=== PATIENT | female | born 1960 | race Caucasian/White ===

== ENCOUNTER 2019-09-05 20:25 | Emergency (ER) | payer OTHER ==
[2019-09-05] MEDS ORDERED: DUONEB 0.5-3 MG/3 ml Neb IH ONE ×2 (20:28→20:33)
[2019-09-05] MEDS ORDERED: solu-MEDROL 125 MG IV ONE (20:28)
[2019-09-05] MEDS ORDERED: Sodium Chloride 0.9% 1000 ML 1,000 ML IV SCH (20:30)
[2019-09-05] MEDS ORDERED: Sodium Chloride 0.9% 1000 ML 1,000 ML ONE (20:37)
[2019-09-05] MEDS ORDERED: solu-MEDROL 125 MG ONE (20:37)
[2019-09-05] MEDS ORDERED: HYDROCODONE-ACETAMIN 2.5-108/5 ML SOLUTION ONE (21:10)
[2019-09-05 21:11] LABS: Lactic Acid 2.2 (0.4-2.0)
[2019-09-05] MEDS: HYDROCODONE-ACETAMIN 2.5-108/5 ML SOLUTION PO PRN (21:11)
[2019-09-05 21:21] LABS: Absolute Neutrophil Ct (ANC) 4.13 (1.4-6.9); BASOPHIL % 0.5 % (0.0-0.4); Basophil (Absolute #) 0.04 (0-0.4); Eosinophil % 9.2 % (0.00-5.0); Hematocrit 43.7 % (35-47); Hemoglobin 14.8 gm/dl (12.0-16.0); Lymphocyte (Absolute #) 1.89 (1.0-4.6); Lymphocytes % 24.7 % (24.0-44.0); Mean Cell Volume 98.6 fl (78-100); Mean Corpuscular Hemoglobin 33.4 pg (26-32); Mean Corpuscular Hgb Concent. 33.9 g/dl (32-36); Mean Platelet Volume 11.2 fl (7.5-11.0); Monocyte (Absolute #) 0.89 (0.0-1.3); Monocytes % 11.6 % (0.0-12.0); Platelet Count 234 K/mm3 (150-450); Red Blood Count 4.43 M/mm3 (4.1-5.4); White Blood Count 7.7 K/mm3 (4.0-10.5)
[2019-09-05] MEDS ORDERED: PROVENTIL 2.5 MG/3 ML NEB IH ONE ×2 (21:27→21:30)
[2019-09-05 21:50] LABS: INFLUENZA A NEGATIVE (NEGATIVE); INFLUENZA B NEGATIVE (NEGATIVE); RESPIRATORY SYNCTIAL VIRUS NEGATIVE (Negative)
[2019-09-05 21:53] LABS: ALBUMIN 4.5 g/dL (3.5-5.0); ALKALINE PHOSPHATASE 74 U/L (38-126); ANION GAP 12.9 MEQ/L (5-15); BLOOD UREA NITROGEN 11 mg/dL (7-17); CHLORIDE 104 mmol/L (98-107); Calcium 10.4 mg/dL (8.4-10.2); Carbon Dioxide 25 mmol/L (22-30); Creatinine 1 0.62 mg/dL (0.52-1.04); Glucose 90 mg/dL (74-106); MAGNESIUM 1.8 mg/dL (1.6-2.3); NT PRO BNP 232 pg/mL (0-900); Potassium 3.6 mmol/L (3.5-5.1); SGOT/AST 51 U/L (14-36); SGPT/ALT 19 U/L (0-35); SODIUM 137 mmol/L (137-145); Total Protein 7.7 g/dL (6.3-8.2)
[2019-09-05 22:03] LABS: Appearance CLEAR (CLEAR); Bilirubin NEGATIVE (NEGATIVE); Blood MODERATE Ery/ul (0-5); Epithelial Cells RARE /HPF (FEW); Glucose NEGATIVE (NEGATIVE); Ketones NEGATIVE (NEGATIVE); Leukocyte Esterase NEGATIVE (NEGATIVE); Mucus SLIGHT /HPF (NEGATIVE); Nitrite NEGATIVE (NEGATIVE); Protein,Urine Dip NEGATIVE (Negative); Specific Gravity 1.004 (1.005-1.025); Urobilinogen NEGATIVE mg/dL (0-1)
[2019-09-05 22:23] VITALS: PULSE 82
[2019-09-05 22:34] LABS: INR 0.92 (0.8-3.0); PROTIME 10.4 SECONDS (9.95-12.35)
[2019-09-05 23:18] VITALS: O2SAT 100
--- NOTE | 2019-09-06 00:05 | ERPHSYRPT ---
- History of Present Illness Time Seen by Provider: 09/05/19 20:35 Source: patient Patient Subjective Stated Complaint: pt states fot the last three dys she has been unable to breath well. she states sheh as not been ill to her knowledge but feels like she has had hot and cold flashes. Triage Nursing Assessment: pt states she has had no pain but has trouble getting a good breath. states it is harder to breath when she lays down flat. Physician History: patient is a 59-year-old female has been short of breath and coughing since Wednesday. She denies any fever but has had chills and sweats. She is coughing up clear sputum. She says she's never been told has COPD but she does have a inhaler that she uses frequently. Timing/Duration: day(s) (5) Activities at Onset: none Severity of Dyspnea-Max: moderate Severity of Dyspnea-Current: moderate Possible Cause: occasional episodes Modifying Factors: Improves With: activity, albuterol nebulizer Associated Symptoms: cough, wheezing, heaviness, lightheadedness Allergies/Adverse Reactions: No Known Drug Allergies Allergy (Unverified 09/05/19 20:40) Home Medications: Albuterol Sulfate [Albuterol Sulfate Hfa] 90 mcg IN 09/05/19 [History] clonazePAM [Clonazepam] 0.5 mg PO BID 09/05/19 [History] Hx Influenza Vaccination/Date Given: No Hx Pneumococcal Vaccination/Date Given: No - Review of Systems Constitutional: Chills, Night Sweats, No Fever Eyes: No Symptoms Ears, Nose, & Throat: No Symptoms Respiratory: Cough, Dyspnea, Dyspnea on Exertion (BROWN), Wheezing Cardiac: No Chest Pain, No Edema, No Syncope Abdominal/Gastrointestinal: No Abdominal Pain, No Nausea, No Vomiting, No Diarrhea Genitourinary Symptoms: No Dysuria Musculoskeletal: No Back Pain, No Neck Pain Skin: No Rash Neurological: No Dizziness, No Focal Weakness, No Sensory Changes Psychological: No Symptoms Endocrine: No Symptoms All Other Systems: Reviewed and Negative - Past Medical History Pertinent Past Medical History: No - Past Surgical History Past Surgical History: No - Social History Smoking Status: Current every day smoker How long have you smoked: 40 Drug Use: none Patient Lives Alone: No - Nursing Vital Signs Nursing Vital Signs: Initial Vital Signs Temperature 97.6 F 09/05/19 20:29 Pulse Rate 95 H 09/05/19 20:29 Respiratory Rate 22 09/05/19 20:29 O2 Sat by Pulse Oximetry 96 09/05/19 20:29 Pain Scale Pain Intensity 0 - Physical Exam General Appearance: moderate distress, alert Eye Exam: PERRL/EOMI Ears, Nose, Throat Exam: normal ENT inspection Neck Exam: normal inspection, supple Respiratory Exam: respiratory distress, diminished breath sounds, accessory muscle use, prolonged expirations, crackles/rales, rhonchi, wheezing Cardiovascular/Chest Exam: normal heart sounds, regular rate/rhythm Abdominal/Gastrointestinal Exam: soft, No tenderness, No distention, No mass Extremity Exam: non-tender, normal range of motion, normal inspection, no calf tenderness, no pedal edema Peripheral Pulses Exam: carotid (R): 2+, carotid (L): 2+ Neurologic Exam: alert, oriented x 3, cooperative, chief privacy officer II-XII nml as tested, sensation nml, No motor deficits Skin Exam: normal color, warm, No dry Lymphatic Exam: adenopathy SpO2 Interpretation: normal SpO2: 100 O2 Delivery: Room Air - Radiology Exams Chest X-ray Interpretation: Interpreted by me, No Pneumonia, No Pneumothorax, No Infiltrates - CT Exams Chest CT Interpretation: Other (CT scan shows emphysematous changes and scarring in the left upper O. and lobe which should be followed) Ordered Tests: Active Orders 24 hr Category Date Time Status Supervisor Filter Assembly STAT Care 09/05/19 20:29 Active EKG-ER Only STAT Care 09/05/19 20:28 Active IV Insertion STAT Care 09/05/19 20:28 Active Oxygen-ED Only Nasal Cannula 2 lpm Care 09/05/19 21:04 Active Pulse Oximetry (ED) STAT Care 09/05/19 20:28 Active CHEST 1 VIEW (PORTABLE) Stat Exams 09/05/19 20:29 Taken CHEST WITH CONTRAST [CT] Stat Exams 09/05/19 22:16 Taken BLOOD CULTURE Stat Lab 09/05/19 21:03 Received CBC W DIFF Stat Lab 09/05/19 21:03 Completed CMP Stat Lab 09/05/19 21:03 Completed D-DIMER QUANTITATIVE Stat Lab 09/05/19 21:03 Completed Lactic Acid Stat Lab 09/05/19 20:28 Completed Lactic Acid Stat Lab 09/05/19 23:03 Ordered MAGNESIUM Stat Lab 09/05/19 21:03 Completed NT PRO BNP Stat Lab 09/05/19 21:03 Completed PROTIME WITH INR Stat Lab 09/05/19 21:03 Completed TROPONIN Q3H Lab 09/05/19 20:30 Completed TROPONIN Q3H Lab 09/05/19 23:30 Ordered TROPONIN Q3H Lab 09/06/19 02:30 Ordered TROPONIN Q3H Lab 09/06/19 05:30 Ordered TROPONIN Q3H Lab 09/06/19 08:30 Ordered UA W/RFX UR CULTURE Stat Lab 09/05/19 21:22 Completed Peak Expiratory Flow Rate ONCE RT 09/05/19 20:28 Active Respiratory Therapy Assessment DAILY RT 09/05/19 20:58 Active Medication Summary Generic Name Dose Route Start Last Admin Trade Name Freq PRN Reason Stop Dose Admin Hydrocodone Bitart/Acetaminophen 5 ml 09/05/19 21:08 09/05/19 21:11 Hydrocodone-Acetamin 2.5-108/5 Ml Solution PO 09/10/19 21:07 5 ml STAT PRN Administration COUGH Sodium Chloride 1,000 mls @ 100 mls/hr 09/05/19 20:30 09/05/19 20:39 Sodium Chloride 0.9% 1000 Ml IV 10/05/19 20:29 100 mls/hr .Q10H SOPHIE Administration Discontinued Medications Generic Name Dose Route Start Last Admin Trade Name Freq PRN Reason Stop Dose Admin Albuterol Sulfate 2.5 mg 09/05/19 21:27 09/05/19 21:32 Proventil 2.5 Mg/3 Ml Neb IH 09/05/19 21:28 2.5 mg STAT ONE Administration Albuterol Sulfate Confirm 09/05/19 21:30 Proventil 2.5 Mg/3 Ml Neb Administered 09/05/19 21:31 Dose 2.5 mg IH .STK-MED ONE Albuterol/Ipratropium 3 ml 09/05/19 20:28 09/05/19 20:40 Duoneb 0.5-3 Mg/3 Ml Neb IH 09/05/19 20:29 3 ml STAT ONE Administration Albuterol/Ipratropium Confirm 09/05/19 20:33 Duoneb 0.5-3 Mg/3 Ml Neb Administered 09/05/19 20:34 Dose 3 ml IH .STK-MED ONE Methylprednisolone Sodium Succinate 125 mg 09/05/19 20:28 09/05/19 20:39 Solu-Medrol 125 Mg IV 09/05/19 20:29 125 mg STAT ONE Administration Methylprednisolone Sodium Succinate Confirm 09/05/19 20:37 Solu-Medrol 125 Mg Administered 09/05/19 20:38 Dose 125 mg .ROUTE .STK-MED ONE Lab/Rad Data: Laboratory Result Diagrams 09/05/19 21:03 09/05/19 21:03 Laboratory Results 09/05/19 09/05/19 09/05/19 Range/Units 21:22 21:03 21:03 WBC (4.0-10.5) K/mm3 RBC (4.1-5.4) M/mm3 Hgb (12.0-16.0) gm/dl Hct (35-47) % MCV (78-100) fl MCH (26-32) pg MCHC (32-36) g/dl RDW (11.5-14.0) % Plt Count (150-450) K/mm3 MPV (7.5-11.0) fl Gran % (36.0-66.0) % Eos # (Auto) (0-0.5) Absolute Lymphs (auto) (1.0-4.6) Absolute Monos (auto) (0.0-1.3) Lymphocytes % (24.0-44.0) % Monocytes % (0.0-12.0) % Eosinophils % (0.00-5.0) % Basophils % (0.0-0.4) % Absolute Granulocytes (1.4-6.9) Basophils # (0-0.4) PT 10.4 (9.95-12.35) SECONDS INR 0.92 (0.8-3.0) D-Dimer 499 (215-500) ng/mL Sodium (137-145) mmol/L Potassium (3.5-5.1) mmol/L Chloride (98-107) mmol/L Carbon Dioxide (22-30) mmol/L Anion Gap (5-15) MEQ/L BUN (7-17) mg/dL Creatinine (0.52-1.04) mg/dL Estimated GFR ML/MIN Glucose (74-106) mg/dL Lactic Acid (0.4-2.0) Calcium (8.4-10.2) mg/dL Magnesium (1.6-2.3) mg/dL Total Bilirubin (0.2-1.3) mg/dL AST (14-36) U/L ALT (0-35) U/L Alkaline Phosphatase (38-126) U/L Troponin I (0.000-0.034) ng/mL NT-Pro-B Natriuret Pep (0-900) pg/mL Serum Total Protein (6.3-8.2) g/dL Albumin (3.5-5.0) g/dL Urine Color STRAW (YELLOW) Urine Appearance CLEAR (CLEAR) Urine pH 6.0 (5-6) Ur Specific [place] 1.004 (1.005-1.025) Urine Protein NEGATIVE (Negative) Urine Ketones NEGATIVE (NEGATIVE) Urine Blood MODERATE (0-5) Jimbo/ul Urine Nitrite NEGATIVE (NEGATIVE) Urine Bilirubin NEGATIVE (NEGATIVE) Urine Urobilinogen NEGATIVE (0-1) mg/dL Ur Leukocyte Esterase NEGATIVE (NEGATIVE) Urine WBC (Auto) NONE (0-5) /HPF Urine RBC (Auto) 3-5 (0-2) /HPF U Epithel Cells (Auto) RARE (FEW) /HPF Urine Bacteria (Auto) NONE (NEGATIVE) /HPF Urine Mucus (Auto) SLIGHT (NEGATIVE) /HPF Urine Culture Reflexed NO (NO) Urine Glucose NEGATIVE (NEGATIVE) mg/dL Influenza Type A Ag NEGATIVE (NEGATIVE) Influenza Type B Ag NEGATIVE (NEGATIVE) RSV (PCR) NEGATIVE (Negative) 09/05/19 09/05/19 09/05/19 Range/Units 21:03 21:03 20:30 WBC 7.7 (4.0-10.5) K/mm3 RBC 4.43 (4.1-5.4) M/mm3 Hgb 14.8 (12.0-16.0) gm/dl Hct 43.7 (35-47) % MCV 98.6 (78-100) fl MCH 33.4 H (26-32) pg MCHC 33.9 (32-36) g/dl RDW 13.0 (11.5-14.0) % Plt Count 234 (150-450) K/mm3 MPV 11.2 H (7.5-11.0) fl Gran % 54.0 (36.0-66.0) % Eos # (Auto) 0.70 H (0-0.5) Absolute Lymphs (auto) 1.89 (1.0-4.6) Absolute Monos (auto) 0.89 (0.0-1.3) Lymphocytes % 24.7 (24.0-44.0) % Monocytes % 11.6 (0.0-12.0) % Eosinophils % 9.2 H (0.00-5.0) % Basophils % 0.5 (0.0-0.4) % Absolute Granulocytes 4.13 (1.4-6.9) Basophils # 0.04 (0-0.4) PT (9.95-12.35) SECONDS INR (0.8-3.0) D-Dimer (215-500) ng/mL Sodium 137 (137-145) mmol/L Potassium 3.6 (3.5-5.1) mmol/L Chloride 104 (98-107) mmol/L Carbon Dioxide 25 (22-30) mmol/L Anion Gap 12.9 (5-15) MEQ/L BUN 11 (7-17) mg/dL Creatinine 0.62 (0.52-1.04) mg/dL Estimated GFR > 60.0 ML/MIN Glucose 90 (74-106) mg/dL Lactic Acid (0.4-2.0) Calcium 10.4 H (8.4-10.2) mg/dL Magnesium 1.8 (1.6-2.3) mg/dL Total Bilirubin 0.80 (0.2-1.3) mg/dL AST 51 H (14-36) U/L ALT 19 (0-35) U/L Alkaline Phosphatase 74 (38-126) U/L Troponin I < 0.012 (0.000-0.034) ng/mL NT-Pro-B Natriuret Pep 232 (0-900) pg/mL Serum Total Protein 7.7 (6.3-8.2) g/dL Albumin 4.5 (3.5-5.0) g/dL Urine Color (YELLOW) Urine Appearance (CLEAR) Urine pH (5-6) Ur Specific [place] (1.005-1.025) Urine Protein (Negative) Urine Ketones (NEGATIVE) Urine Blood (0-5) Jimbo/ul Urine Nitrite (NEGATIVE) Urine Bilirubin (NEGATIVE) Urine Urobilinogen (0-1) mg/dL Ur Leukocyte Esterase (NEGATIVE) Urine WBC (Auto) (0-5) /HPF Urine RBC (Auto) (0-2) /HPF U Epithel Cells (Auto) (FEW) /HPF Urine Bacteria (Auto) (NEGATIVE) /HPF Urine Mucus (Auto) (NEGATIVE) /HPF Urine Culture Reflexed (NO) Urine Glucose (NEGATIVE) mg/dL Influenza Type A Ag (NEGATIVE) Influenza Type B Ag (NEGATIVE) RSV (PCR) (Negative) 09/05/19 Range/Units 20:28 WBC (4.0-10.5) K/mm3 RBC (4.1-5.4) M/mm3 Hgb (12.0-16.0) gm/dl Hct (35-47) % MCV (78-100) fl MCH (26-32) pg MCHC (32-36) g/dl RDW (11.5-14.0) % Plt Count (150-450) K/mm3 MPV (7.5-11.0) fl Gran % (36.0-66.0) % Eos # (Auto) (0-0.5) Absolute Lymphs (auto) (1.0-4.6) Absolute Monos (auto) (0.0-1.3) Lymphocytes % (24.0-44.0) % Monocytes % (0.0-12.0) % Eosinophils % (0.00-5.0) % Basophils % (0.0-0.4) % Absolute Granulocytes (1.4-6.9) Basophils # (0-0.4) PT (9.95-12.35) SECONDS INR (0.8-3.0) D-Dimer (215-500) ng/mL Sodium (137-145) mmol/L Potassium (3.5-5.1) mmol/L Chloride (98-107) mmol/L Carbon Dioxide (22-30) mmol/L Anion Gap (5-15) MEQ/L BUN (7-17) mg/dL Creatinine (0.52-1.04) mg/dL Estimated GFR ML/MIN Glucose (74-106) mg/dL Lactic Acid 2.2 H (0.4-2.0) Calcium (8.4-10.2) mg/dL Magnesium (1.6-2.3) mg/dL Total Bilirubin (0.2-1.3) mg/dL AST (14-36) U/L ALT (0-35) U/L Alkaline Phosphatase (38-126) U/L Troponin I (0.000-0.034) ng/mL NT-Pro-B Natriuret Pep (0-900) pg/mL Serum Total Protein (6.3-8.2) g/dL Albumin (3.5-5.0) g/dL Urine Color (YELLOW) Urine Appearance (CLEAR) Urine pH (5-6) Ur Specific [place] (1.005-1.025) Urine Protein (Negative) Urine Ketones (NEGATIVE) Urine Blood (0-5) Jimbo/ul Urine Nitrite (NEGATIVE) Urine Bilirubin (NEGATIVE) Urine Urobilinogen (0-1) mg/dL Ur Leukocyte Esterase (NEGATIVE) Urine WBC (Auto) (0-5) /HPF Urine RBC (Auto) (0-2) /HPF U Epithel Cells (Auto) (FEW) /HPF Urine Bacteria (Auto) (NEGATIVE) /HPF Urine Mucus (Auto) (NEGATIVE) /HPF Urine Culture Reflexed (NO) Urine Glucose (NEGATIVE) mg/dL Influenza Type A Ag (NEGATIVE) Influenza Type B Ag (NEGATIVE) RSV (PCR) (Negative) - Progress Progress: improved Air Movement: good Blood Culture(s) Obtained: Yes Antibiotics given: No - Departure Departure Disposition: Home Clinical Impression: COPD exacerbation Condition: Stable Critical Care Time: No Referrals: MILES ALMAGUER [Primary Care Provider] - Instructions: Chronic Obstructive Pulmonary Disease Plan of Treatment: we did encourage admission however the patient was quite adamant that she was feeling better one to go home. Prescriptions: Cephalexin Mh 500 mg [Keflex 500 mg] 500 mg PO TID #21 capsule Prednisone 10 mg [Deltasone 10 mg] 30 mg PO BID #18 tablet
[2019-09-06] MEDS ORDERED: KEFLEX 500 MG PO ONE (00:08)
[2019-09-06 00:11] VITALS: BP 157/100
[2019-09-06] MEDS ORDERED: HYDROCODONE-ACETAMIN 2.5-108/5 ML SOLUTION ONE (00:12)
[2019-09-06] MEDS ORDERED: KEFLEX 500 MG ONE (00:12)
[2019-09-06] MEDS: HYDROCODONE-ACETAMIN 2.5-108/5 ML SOLUTION PO PRN (00:14)
[2019-09-06 01:10] LABS: Lactic Acid 2.1 (0.4-2.0)
--- NOTE | 2019-09-06 08:57 | XRAY ---
Indication: Cough and short of breath. Comparison: June 28, 2019. Portable chest remains hyperinflated without focal infiltrate, consolidation, or large effusion. Heart is not enlarged. Bony thorax intact again with scoliosis. Impression: Nonacute hyperinflated chest with chronic features.
--- NOTE | 2019-09-06 09:00 | XRAY ---
Indication: Cough, short of breath, chills, and hot flashes. Multiple contiguous axial images obtained through the chest using 80 cc Isovue 370 contrast and PE protocol. Comparison: None There is good opacification of the pulmonary arteries to include the lobar and segmental branches. No filling defect or pulmonary embolus. Heart is not enlarged. Aorta is minimally arteriosclerotic without aneurysm/dissection. Subcarinal and right perihilar calcified nodes. No pathologic mediastinal/hilar lymphadenopathy. Lungs demonstrates moderate pulmonary emphysema and bilateral upper lobe pleural-parenchymal fibrosis/scarring. Posterior left upper lobe demonstrates a 0.8 x 1.5 cm noncalcified spiculated lesion, either focal fibrosis/scarring versus malignancy. Posterior medial right lower lobe demonstrates 4 mm peripheral indeterminate noncalcified nodule. No infiltrate or effusion. Bony thorax demonstrates minimal degenerative changes throughout the spine and mild double curvature scoliosis. Superior endplate of L2 demonstrates remote appearing concave deformity either prominent Schmorl nodes versus old endplate fracture. Limited upper abdomen demonstrates tiny calcified splenic granuloma. Impression: 1. Negative pulmonary embolus. 2. Left upper lobe noncalcified spiculated lesion possibly focal fibrosis/scarring as there is additional foci in both upper lobes. Malignancy not completely excluded. Additional indeterminant right lower lobe noncalcified micronodule. Comparison studies would be of benefit if performed elsewhere. PET/CT may yield further information. 3. Incidental pulmonary emphysema, evidence for old granulomatous disease, and chronic bony findings. Comment: Preliminary interpretation was made by C. No critical discrepancy.
== END 2019-09-06 00:30 | disposition home or self-care (01) ==
LOC: ED 20:25
DX: J44.1 Chronic obstructive pulmonary disease with (acute) exacerbation (principal)
CPT/HCPCS: 36000; 36415; 71045; 71260; 80053; 81001; 83605; 83735; 83880; 84484; 85025; 85379; 85610; 87040; 87631; 93005; 93041; 94150; 94640; 94760; 96374; 99284; J2930; J7609; A9270-GY